=== PATIENT | male | born 1960 | race Asian ===

== ENCOUNTER 2018-03-17 10:20 | Outpatient (CLI) | payer BC, OTHER ==
[2018-03-17 11:01] LABS: PLATELET COUNT 170 K/uL (142-355)
[2018-03-17 11:12] LABS: POTASSIUM 5.1 mmol/L (3.6-5.2)
== END 2018-03-17 23:12 | disposition home or self-care (01) ==
LOC: LABW 10:20
PROVIDERS: Emergency Medicine
DX: E11.9 Type 2 diabetes mellitus without complications (principal); F41.8 Other specified anxiety disorders; I10 Essential (primary) hypertension; G89.29 Other chronic pain; N52.8 Other male erectile dysfunction; N40.0 Benign prostatic hyperplasia without lower urinary tract symptoms; M47.892 Other spondylosis, cervical region
CPT/HCPCS: 36415; 80053; 80061; 83036; 84403; 85027

== ENCOUNTER 2018-06-21 10:23 | Outpatient (CLI) | payer BC, OTHER | END 2018-06-21 19:37 | disposition home or self-care (01) | LOC: LABW 10:23 | DX: G89.29 Other chronic pain (principal); M19.90 Unspecified osteoarthritis, unspecified site; E11.42 Type 2 diabetes mellitus with diabetic polyneuropathy; R82.99 Other abnormal findings in urine; N40.0 Benign prostatic hyperplasia without lower urinary tract symptoms; I10 Essential (primary) hypertension; F41.8 Other specified anxiety disorders; G62.89 Other specified polyneuropathies | CPT/HCPCS: 80307; 81000; 87088 ==

== ENCOUNTER 2018-07-07 14:41 | Outpatient (CLI) | payer BC, OTHER ==
[2018-07-07 15:11] LABS: PLATELET COUNT 174 K/uL (142-355)
[2018-07-07 15:26] LABS: POTASSIUM 4.1 mmol/L (3.6-5.2)
== END 2018-07-07 19:36 | disposition home or self-care (01) ==
LOC: LABW 14:41
PROVIDERS: Emergency Medicine
DX: M99.71 Connective tissue and disc stenosis of intervertebral foramina of cervical region (principal); E11.9 Type 2 diabetes mellitus without complications; N40.0 Benign prostatic hyperplasia without lower urinary tract symptoms
CPT/HCPCS: 36415; 80053; 83036; 84153; 85027

== ENCOUNTER 2020-09-04 17:36 | Emergency (ER) | payer OTHER ==
[~2020-09-04] VITALS: Ht 180.3 cm; Wt 98.4 kg
[2020-09-04] MEDS ORDERED: OXYCODONE30 MG PO (18:02)
[2020-09-04 21:35] VITALS: BP 115/71; TEMP 97.3
== END 2020-09-04 21:36 | disposition home or self-care (01) ==
LOC: ED 17:36
DX: M54.5 Low back pain (principal)
CPT/HCPCS: 96372; 99283; J1100